=== PATIENT | female | born 1955 | race Caucasian/White ===

== ENCOUNTER 2021-10-08 13:37 | Outpatient (REF) | payer OTHER, SELFPAY ==
--- NOTE | 2021-10-22 08:56 | MHC.AU.HAS ---
Hearing Aid Evaluation Date of Visit: 10/08/21 Historical Information: Description of Hearing: Profound sensorineural hearing loss bilaterally Current personal amplification information, if applicable: Pair of O[employer]on Dynamo SP6 BTEs Summary: Patient was seen for hearing aid evaluation. She has been using a pair of Oticon Dynamo SP6 BTEs, obtained in June 2016. New hearing aid options were discussed. Hearing Aid Prescription: Based on the individual?s shared listening needs, communication environments, dexterity, desire for connectivity, and personal preferences, the following prescription for amplification has been made: Right ear: Paramedical Aide: O[employer]on Model: xCeed 2 UP BTE Battery Size: 675 Color: Terracotta Type of Mold: Microsonic M2000 Clear Shell Mold Left ear: Paramedical Aide: O[employer]on Model: Xceed 2 UP BTE Battery Size: 675 Color: Terracotta Type of Mold: Microsonic M2000 Clear Shell Mold Action Taken/Action Needed: Earmold Impressions Taken After today's appointment, it was discovered that the audiogram the patient brought from [facility] was just over 6 months old. Insurance guidelines state that the audiological evaluation must be within the last 6 months for hearing aids to be approved. Patient was scheduled to return for an audiological re-evaluation. Primary Diagnosis: H90.3 Bilateral Sensorineural Hearing Loss Signature: Provider: Marielle Segura, CCC-A
== END 2021-10-08 13:38 | disposition home or self-care (01) ==
LOC: HO.HAP 13:37
PROVIDERS: Visit Provider Internal Medicine
DX: Z46.1 Encounter for fitting and adjustment of hearing aid (principal); H90.3 Sensorineural hearing loss, bilateral
CPT/HCPCS: 92591; V5010; V5275

== ENCOUNTER 2021-10-18 08:11 | Outpatient (REF) | payer OTHER, SELFPAY ==
--- NOTE | 2021-10-22 09:36 | MHC.AU.MED ---
Medical Clearance for Hearing Instrumentation Date: 10/22/21 Patient Name: Kerline Johnson Date of : 1955 Referring Provider: Ruben James I, MD We have seen your patient on 10/18/21 and have determined that they are a candidate for amplification (See accompanying report). Specifically, they would benefit from: Hearing aid use in both ears There is a statute that addresses Medical Evaluation Requirements prior to fitting a patient with a hearing aid. According to [place] statute 265 CMR:6.03(1), (a) General. Except as provided in 265 CMR 6.03(1)(b), a manager drug safety shall not sell a hearing aid unless the prospective user has presented to the manager drug safety a written statement signed by a licensed physician that states that the patient's hearing loss has been medically evaluated and the patient may be considered a candidate for a hearing aid. The medical evaluation must have taken place within the preceding six months. Please note: Due to the [place] Statute referenced above, we cannot accept a signature other than that of a licensed physician. CLAY PLANT T[employer]ATER and PA signatures cannot be accepted. I am in agreement with the above recommendation. There is no medical contraindication for hearing instrumentation. Physician Signature Date Physician Name (Printed)
--- NOTE | 2021-10-22 09:37 | MHC.AU.ANH ---
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 Patient arrives today to determine if there have been any changes in hearing. She has been using a pair of [employer] Dynamo SP6 BTEs, obtained in 06/2016. She reports that her right ear has been hurting for the past few days, and she has noticed discharge. Previous Hearing Test Results: At [facility] on 04/07/2021- Profound sensorineural hearing loss bilaterally Ear History: Family History of Hearing Loss?: Yes History of Ear Wax Buildup: Both Ears Previous Ear Surgery: Both Ears Medical History: Medical History: Diabetes, Headache Otoscopy: Right Ear: TM was red and discharge present Left Ear: Unremarkable Tympanometry: Tympanometry performed due to: Right Ear: Large ear canal volume, suggesting TM perforation Left Ear: Large ear canal volume, suggesting TM perforation Hearing Evaluation: Transducer(s) Used: Insert Earphones Method: Conventional Audiometry Stimuli Used: Pure Tones Right Ear: Description of Hearing: Profound sensorineural hearing loss Left Ear: Description of Hearing: Profound sensorienural hearing loss Speech Recognition Threshold (SRT): Could not test Word Discrimination: Could not test Comparison: Compared to the most recent evaluation: Hearing is stable. Recommendations: Audiological re-evaluation in one year. Patient should contact her PCP today regarding the pain and discharge in her right ear. Prior authorization for hearing aids will be sent to patient's insurance (see note from 10/08/2021 visit for details). Diagnosis: Primary Diagnosis: H90.3 Bilateral Sensorineural Hearing Loss Secondary Diagnosis: H69.91 Unspecified Eustachian Tube Dysfunction, Right Ear Signature: Provider: Marielle Segura, CCC-A
== END 2021-10-18 08:12 | disposition home or self-care (01) ==
LOC: HO.HAP 08:11
PROVIDERS: Visit Provider Internal Medicine
DX: Z46.1 Encounter for fitting and adjustment of hearing aid (principal); H90.3 Sensorineural hearing loss, bilateral
CPT/HCPCS: 92552; 92567

== ENCOUNTER 2022-02-03 08:57 | Outpatient (REF) | payer OTHER, SELFPAY ==
--- NOTE | 2022-02-02 12:30 | MHC.AU.HFU ---
Hearing Instrument Follow-Up- Binaural Date of Visit: Canceled appt for 02/03/2022 as patient has CCA and we cannot dispense hearing aid originally ordered in September 2021 at this time. Attempted to schedule 5 different times in October and November alone. Chief Hydroelectric Station Operator: Oticon Model: CANCEL: Xceed 2 BTE 675 UP Patient didn't supervisor opening and picking timely. No insurance coverage current Model: CANCEL: Xceed 2 BTE 675 UP Patient didn't supervisor opening and picking timely. No insurance coverage current Earmolds will be destroyed. If patient's insurance changes, will have to begin the process over from the start as too much time has passed. Patient will have to commit to time frame moving forward if insurance changes. Signature: Provider: Fany Naik, FAAA
== END 2022-02-03 08:58 | disposition home or self-care (01) ==
LOC: HO.HAP 08:57
PROVIDERS: Visit Provider Internal Medicine
DX: Z13.89 Encounter for screening for other disorder (principal)